=== PATIENT | female | born 1980 | race Caucasian/White ===

== ENCOUNTER 2018-10-10 11:06 | Emergency (ER) | payer SELFPAY ==
--- NOTE | 2018-10-10 11:47 | ER Document Report ---
ED General - General Chief Complaint: Breast Problem Stated Complaint: LEFT BREAST PAIN Time Seen by Provider: 10/10/18 11:38 Primary Care Provider: [facility] [Provider Group] - Follow up in 3-5 days (call for appointment ) EMILY BAXTER MD [[facility]] - Follow up tomorrow (call for appointment on friday) Notes: Patient is a 37-year-old female that presents to the emergency department for chief complaint of left breast mass and pain. Patient states that she has been noticing and not an mass in her left breast, for over a year, it has been tender and worse over the past month, she did notice some drainage from her nipple about a month ago, she has some pain into her armpit as well. Has not noticed swelling in the armpit or redness. She reports that her grandmother and great-grandmother both had breast cancer but not her mother. She denies noting recent fevers, chills, nausea, vomiting. She currently rates her pain as a 1 out of 10, joint worse with palpation. Past Medical History: Denies chronic medical conditions Past Surgical History: Tubal ligation Social History: Denies current tobacco, alcohol or drug use. Family History: Reviewed and noncontributory for presenting illness Allergies: Reviewed, see documented allergy list. REVIEW OF SYSTEMS: Other than noted above, the 12 point review of systems was reviewed with the patient and were negative, all pertinent findings are included in the HPI. PHYSICAL EXAMINATION: Vital signs reviewed, nursing noted reviewed. GENERAL: Well-appearing, well-nourished and in no acute distress. HEAD: Atraumatic, normocephalic. EYES: Eyes appear normal, sclera anicteric, conjunctiva are normal. ENT: Moist mucous membranes. NECK: Normal range of motion, supple without lymphadenopathy LUNGS: Breath sounds clear to auscultation bilaterally and equal. No wheezes rales or rhonchi. 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 No subareolar tenderness or masses palpated. The right breast was unremarkable. There is no palpable axillary lymphadenopathy bilaterally. HEART: Regular rate and rhythm without murmurs EXTREMITIES: Nontender, good range of motion, no pitting or edema. NEUROLOGICAL: No focal neurological deficits. Moves all extremities spontaneously Motor and sensory grossly intact on exam. PSYCH: Normal mood, normal affect. SKIN: Warm, Dry, normal turgor, no rashes or lesions noted on exposed skin TRAVEL OUTSIDE OF THE [place] IN LAST 30 DAYS: No - Related Data Allergies/Adverse Reactions: No Known Allergies Allergy (Verified 10/10/18 11:10) Past Medical History - Social History Smoking Status: Never Smoker Chew tobacco use (# tins/day): No Frequency of alcohol use: None Drug Abuse: None Family History: Reviewed & Not Pertinent Patient has suicidal ideation: No Patient has homicidal ideation: No Renal/ Medical History: Denies: Hx Peritoneal Dialysis Past Surgical History: Reports: Hx Tubal Ligation - Immunizations Immunizations up to date: Yes Hx Diphtheria, Pertussis, Tetanus Vaccination: Yes Physical Exam - Vital signs Vitals: Temp Pulse Resp BP Pulse Ox 99.4 F 92 15 146/91 H 99 10/10/18 11:11 10/10/18 11:11 10/10/18 11:11 10/10/18 11:11 10/10/18 11:11 Course - Re-evaluation Re-evalutation: Breast ultrasound was obtained to visualize the larger palpable mass, and demonstrated a single solid breast mass, no cystic component. Recommendation was follow-up with mammography, I did discuss this with the surgeon, who recommended follow-up in the office, and they will schedule mammography, I discussed this with the patient and she agrees to follow-up, advised she could take Motrin for her pain every 8 hours. Patient was agreeable to this plan of care and discharged home. - Vital Signs Vital signs: Temp Pulse Resp BP Pulse Ox 99.4 F 92 15 146/91 H 99 10/10/18 11:11 10/10/18 11:11 10/10/18 11:11 10/10/18 11:11 10/10/18 11:11 Discharge - Discharge Clinical Impression: Breast mass, left Condition: Stable Disposition: HOME, SELF-CARE Additional Instructions: Please follow-up with the surgery clinic, I did discuss your case with Dr. Baxter, 1 of our surgeons, and he or 1 of his partners will see you in the office, call for an appointment on Friday, and they can order a follow-up mammogram to further evaluate the breast lump that she has been feeling. In the meantime you can take [id number] ibuprofen 600 mg every 8 hours if needed for pain. Referrals: EMILY BAXTER MD [[facility]] - Follow up tomorrow (call for appointment on friday) [facility] [Provider Group] - Follow up in 3-5 days (call for appointment )
--- NOTE | 2018-10-10 13:34 | RADIOLOGY REPORT (SQ) ---
EXAM DESCRIPTION: U/S BREAST UNILATERAL LIMITED COMPLETED DATE/TIME: 10/10/2018 1:23 pm REASON FOR STUDY: left breast swelling and pain COMPARISON: None TECHNIQUE: Static and Realtime grayscale interrogation of focal area(s) of concern in the left breas t(s) acquired. Selected color doppler/spectral images saved to PACS. LIMITATIONS: None. FINDINGS: Masses:Solid mass lesion measuring 1.8 x 2.4 x 1 cm. 3 o'clock 1 cm from the nipple. Are a palpable concern. Mildly heterogeneous with echogenic capsule. Architecture:No alteration of normal morphology. No skin thickening. No edema. Other: None. IMPRESSION: Solid mass in the left breast BIRAD: 0 Incomplete: Need additional imaging evaluation and/or prior mammograms for comparison.. RECOMMENDATION: RECOMMENDED FOLLOW-UP: Appropriate mammographic imaging. COMMENT: The [employer] ([employer]) has developed recommendations for screening MRI of the breasts in certain patient populations, to be used in conjunction with mammography. Breast MRI s urveillance may be appropriate for women with more than 20% lifetime risk of developing breast cancer as determined by genetic testing, significant family history of the disease, or history of mantle r adiation for Hodgkins Disease. ACR Practice Guidelines 2008. TECHNICAL DOCUMENTATION: FINDING NUMBER: (1) ASSESSMENT: (1) JOB ID: [id number] [employer]- All Rights Reserved Reading location - IP/workstation name: [email or web address]
[2018-10-10 14:06] VITALS: BP 122/77
== END 2018-10-10 14:10 | disposition home or self-care (01) ==
LOC: ER 11:06
DX: N63.0 Unspecified lump in unspecified breast (principal); N64.4 Mastodynia; M79.629 Pain in unspecified upper arm; Z98.51 Tubal ligation status
CPT/HCPCS: 76642; 99283

== ENCOUNTER 2019-05-09 21:38 | Emergency (ER) | payer SELFPAY ==
[2019-05-09 21:51] VITALS: BP 135/88
[2019-05-09] MEDS ORDERED: PENICILLIN V POTASSIUM 500 MG TABLET PO ONE (22:14)
[2019-05-09] MEDS ORDERED: IBUPROFEN 600 MG TABLET PO ONE (22:15)
[2019-05-09] MEDS ORDERED: HYDROCODONE/ACETAMINOPHEN 5-325 MG (6 TAB/ER DISP) PO PRN (22:15)
--- NOTE | 2019-05-09 22:17 | ER Document Report ---
HPI - HPI Time Seen by Provider: 05/09/19 22:10 Context: Patient is a 38-year-old female that comes to the emergency department for chief complaint of developing tooth pain in her right lower jaw in the back since Friday, she states that symptoms have worsened since then, she has been taking Tylenol for pain but this is not resolved the pain. She has had this 1 time in the past with a tooth that was extracted. She does not have a dentist. She denies throat pain, neck pain, fever, or any other complaints. She denies any daily medications or diagnosed medical problems. - REPRODUCTIVE Reproductive: DENIES: : Past Medical History - General Information source: Patient - Social History Smoking Status: Never Smoker Frequency of alcohol use: None Drug Abuse: None Lives with: Family Family History: Reviewed & Not Pertinent - Medical History Medical History: Negative Renal/ Medical History: Denies: Hx Peritoneal Dialysis Past Surgical History: Reports: Hx Tubal Ligation - Immunizations Immunizations up to date: Yes Hx Diphtheria, Pertussis, Tetanus Vaccination: Yes Vertical Provider Document - INFECTION CONTROL TRAVEL OUTSIDE OF THE [place] IN LAST 30 DAYS: No - HEENT HEENT: Atraumatic, Normocephalic Mouth Diagram: 1 - Dental caries with tenderness and erythema of the gumline but no fluctuance, induration, or abscess. Unremarkable oropharyngeal exam otherwise - NECK Neck: Normal Inspection. negative: Lymphadenopathy-Left, Lymphadenopathy-Right - RESPIRATORY Respiratory: Breath Sounds Normal, No Respiratory Distress - CARDIOVASCULAR Cardiovascular: Regular Rate, Regular Rhythm - GI/ABDOMEN Gastrointestinal: Abdomen Soft, Abdomen Non-Tender - BACK Back: Normal Inspection - MUSCULOSKELETAL/EXTREMETIES Musculoskeletal/Extremeties: MAEW, FROM, Non-Tender - NEURO Level of Consciousness: Awake, Alert, Appropriate Motor/Sensory: No Motor Deficit, No Sensory Deficit - DERM Integumentary: Warm, Dry, No Rash Course - Re-evaluation Re-evalutation: Patient with isolated dental infection with no noted abscesses or other complications. Starting on antibiotics. Discussed dental follow-up and return precautions. Patient states understanding and agreement. - Vital Signs Vital signs: Temp Pulse Resp BP Pulse Ox 97.9 F 80 18 135/88 H 98 05/09/19 21:49 05/09/19 21:49 05/09/19 21:49 05/09/19 21:49 05/09/19 21:49 Discharge - Discharge Clinical Impression: Dental infection, Pain, dental Condition: Stable Disposition: HOME, SELF-CARE Instructions: Oral Narcotic Medication ([facility]) Additional Instructions: The evaluation indicates a dental infection but there is no drainable abscess or other concerning findings noted at this time. Take the antibiotic as prescribed to completion. Follow-up closely with the [facility] referral listed below, call for your appointment. Return if you worsen including increased swelling of the face or any other concerning symptoms. [facility] [address], [address] Prescriptions: Penicillin V Potassium [Penicillin Vk 500 mg Tablet] 500 mg PO BID #20 tablet
== END 2019-05-09 22:29 | disposition home or self-care (01) ==
LOC: ER 21:38
DX: K04.7 Periapical abscess without sinus (principal); K08.89 Other specified disorders of teeth and supporting structures; R68.84 Jaw pain
CPT/HCPCS: 99282